=== PATIENT | male | born 1955 | race Caucasian/White ===

== ENCOUNTER 2019-02-14 08:10 | Day surgery (SDC) | payer MEDICARE, OTHER ==
[~2019-02-14] VITALS: Ht 177.8 cm; Wt 100.0 kg
[~2019-02-14 08:10] MED LIST: ALLO300; ASPI81CH; HYDCHL25; LISI20 PO; METF500 PO; OMEPRAZOLE MAGN20 MG; ROSU10TA PO; SAXA2.5T PO; SILD50TA; TRAZ50
[2019-02-14] MEDS ORDERED: NITR.4SL SL (09:01)
--- NOTE | 2019-02-14 11:00 | NUR ---
RETURNED TO ROOM. TR BAND INTACT. CIRCULATION,MOTION,SENSATION NORMAL.
--- NOTE | 2019-02-14 11:15 | NUR ---
DR. BENEDICT HERE TO DISCUSS RESULTS WITH PATIENT. PLAVIX SCRIPT CALLED TO [facility].
[2019-02-14] MEDS ORDERED: CLOP75 PO (11:39)
--- NOTE | 2019-02-14 13:45 | NUR ---
2 cc air removed from TR band. No bleeding at site.
--- NOTE | 2019-02-14 13:56 | NUR ---
remainder of ar removed from TR band. No bleeding at site.
--- NOTE | 2019-02-14 14:25 | NUR ---
DRESSING FOR DISCHARGE.
--- NOTE | 2019-02-14 14:28 | NUR ---
TR BAND OFF. SITE SOFT NONTENDER. SITE CLEANED. CLOTH DOT AND IMMOBILIZER PLACED RIGHT RADIAL.
--- NOTE | 2019-02-14 14:45 | NUR ---
DISCHARGE INSTRUCTIONS GIVEN WITH VERBAL AND WRITTEN UNDERSTANDING.
--- NOTE | 2019-02-14 14:55 | NUR ---
IV REMOVED INTACT. 2X2, MANUAL PRESSURE AND COBAN APPLIED.
--- NOTE | 2019-02-14 15:00 | NUR ---
DISCHARGED HOME. AMBULATED TO CAR. DRIVING.
== END 2019-02-14 14:55 | disposition home or self-care (01) ==
LOC: MHTC 08:10
DX: I25.119 Atherosclerotic heart disease of native coronary artery with unspecified angina pectoris (principal); I45.10 Unspecified right bundle-branch block; I10 Essential (primary) hypertension; E78.5 Hyperlipidemia, unspecified; E11.9 Type 2 diabetes mellitus without complications; Z79.82 Long term (current) use of aspirin; Z79.899 Other long term (current) drug therapy; Z88.8 Allergy status to other drugs, medicaments and biological substances
CPT/HCPCS: 85347; 92920; 92978; 93458; 99152; 99153; C1725; C1753; C1769; C1874; C1887; C1894; C9600; J1644; J2250; J3010; J7030; Q9967